=== PATIENT | male | born 1960 | race American Indian/Alaskan Native ===

== ENCOUNTER 2020-02-06 13:11 | Outpatient (CLI) | payer MEDICARE, MEDICAID | END 2020-02-06 13:12 | disposition home or self-care (01) | LOC: WOUND 13:11 | PROVIDERS: ATTEND Surgery | DX: N30.40 Irradiation cystitis without hematuria (principal); C61 Malignant neoplasm of prostate; E11.8 Type 2 diabetes mellitus with unspecified complications; H91.90 Unspecified hearing loss, unspecified ear; F32.9 Major depressive disorder, single episode, unspecified; F20.9 Schizophrenia, unspecified; Z90.49 Acquired absence of other specified parts of digestive tract | CPT/HCPCS: 99204; G0463 ==

== ENCOUNTER 2020-03-13 12:30 | Outpatient (CLI) | payer MEDICARE, MEDICAID ==
--- NOTE | 2020-03-13 13:41 | XRay Report ---
CHEST 2 VIEWS INDICATION: HBO CLEARANCE/MALIGNANT NEOPLASM OF PROSTATE. COMPARISON: None FINDINGS: Support devices: None. Heart: Within normal limits. Lungs/pleura: No acute air space or interstitial disease. No pneumothorax. Additional findings: None. IMPRESSION: Unremarkable chest films. Signer Name: Jed Baum Jr, MD Signed: 03/13/2020 1:36 PM Workstation Name: [id number]
== END 2020-03-13 12:31 | disposition home or self-care (01) ==
LOC: XRAY 12:30
PROVIDERS: ATTEND Surgery
DX: C61 Malignant neoplasm of prostate (principal)
CPT/HCPCS: 36415; 71046; 83036

== ENCOUNTER 2020-03-17 10:33 | Outpatient (CLI) | payer MEDICARE, MEDICAID | END 2020-03-17 10:34 | disposition home or self-care (01) | LOC: WOUND 10:33 | PROVIDERS: ATTEND Surgery | DX: M87.88 Other osteonecrosis, other site (principal); N30.41 Irradiation cystitis with hematuria; L59.8 Other specified disorders of the skin and subcutaneous tissue related to radiation; C61 Malignant neoplasm of prostate; E11.9 Type 2 diabetes mellitus without complications; I10 Essential (primary) hypertension; H91.90 Unspecified hearing loss, unspecified ear; F32.9 Major depressive disorder, single episode, unspecified; F20.9 Schizophrenia, unspecified; Z90.49 Acquired absence of other specified parts of digestive tract; Y84.2 Radiological procedure and radiotherapy as the cause of abnormal reaction of the patient, or of later complication, without mention of misadventure at the time of the procedure | CPT/HCPCS: 82962; G0277; 99183 ==

== ENCOUNTER 2020-03-18 10:00 | Outpatient (CLI) | payer MEDICARE, MEDICAID | END 2020-03-18 10:01 | disposition home or self-care (01) | LOC: WOUND 10:00 | PROVIDERS: ATTEND Internal Medicine | DX: M87.88 Other osteonecrosis, other site (principal); N30.41 Irradiation cystitis with hematuria; C61 Malignant neoplasm of prostate; E11.69 Type 2 diabetes mellitus with other specified complication; H91.90 Unspecified hearing loss, unspecified ear; F32.9 Major depressive disorder, single episode, unspecified; F20.9 Schizophrenia, unspecified; Z90.49 Acquired absence of other specified parts of digestive tract | CPT/HCPCS: 82962; G0277; 99183 ==

== ENCOUNTER 2020-06-09 12:17 | Outpatient (CLI) | payer MEDICARE, MEDICAID | END 2020-06-09 12:18 | disposition home or self-care (01) | LOC: WOUND 12:17 | PROVIDERS: ATTEND Surgery | DX: M87.88 Other osteonecrosis, other site (principal); N30.41 Irradiation cystitis with hematuria; Z85.46 Personal history of malignant neoplasm of prostate; E11.69 Type 2 diabetes mellitus with other specified complication; H91.90 Unspecified hearing loss, unspecified ear; F32.9 Major depressive disorder, single episode, unspecified; F20.9 Schizophrenia, unspecified; Z90.49 Acquired absence of other specified parts of digestive tract | CPT/HCPCS: 82962; G0277; 99183 ==

== ENCOUNTER 2020-06-10 10:06 | Outpatient (CLI) | payer MEDICARE, MEDICAID | END 2020-06-10 10:07 | disposition home or self-care (01) | LOC: WOUND 10:06 | PROVIDERS: ATTEND Internal Medicine | DX: M87.88 Other osteonecrosis, other site (principal); N30.41 Irradiation cystitis with hematuria; Z85.46 Personal history of malignant neoplasm of prostate; E11.69 Type 2 diabetes mellitus with other specified complication; H91.90 Unspecified hearing loss, unspecified ear; F32.9 Major depressive disorder, single episode, unspecified; F20.9 Schizophrenia, unspecified; Z90.49 Acquired absence of other specified parts of digestive tract | CPT/HCPCS: 82962; G0277; 99183 ==

== ENCOUNTER 2020-06-11 10:14 | Outpatient (CLI) | payer MEDICARE, MEDICAID | END 2020-06-11 10:15 | disposition home or self-care (01) | LOC: WOUND 10:14 | PROVIDERS: ATTEND Surgery | DX: M87.88 Other osteonecrosis, other site (principal); L59.8 Other specified disorders of the skin and subcutaneous tissue related to radiation; N30.41 Irradiation cystitis with hematuria; Z85.46 Personal history of malignant neoplasm of prostate; E11.69 Type 2 diabetes mellitus with other specified complication; F32.9 Major depressive disorder, single episode, unspecified; F20.9 Schizophrenia, unspecified; Z90.49 Acquired absence of other specified parts of digestive tract; Y84.2 Radiological procedure and radiotherapy as the cause of abnormal reaction of the patient, or of later complication, without mention of misadventure at the time of the procedure; Y78.1 Therapeutic (nonsurgical) and rehabilitative radiological devices associated with adverse incidents | CPT/HCPCS: 99183; G0277 ==

== ENCOUNTER 2020-06-12 10:02 | Outpatient (CLI) | payer MEDICARE, MEDICAID | END 2020-06-12 10:03 | disposition home or self-care (01) | LOC: WOUND 10:02 | PROVIDERS: ATTEND Surgery | DX: M87.88 Other osteonecrosis, other site (principal); N30.41 Irradiation cystitis with hematuria; Z85.46 Personal history of malignant neoplasm of prostate; E11.69 Type 2 diabetes mellitus with other specified complication; H91.90 Unspecified hearing loss, unspecified ear; F32.9 Major depressive disorder, single episode, unspecified; F20.9 Schizophrenia, unspecified; Z90.49 Acquired absence of other specified parts of digestive tract | CPT/HCPCS: 82962; G0277; 99183 ==

== ENCOUNTER 2020-06-13 09:49 | Outpatient (CLI) | payer MEDICARE, MEDICAID | END 2020-06-13 09:50 | disposition home or self-care (01) | LOC: WOUND 09:49 | PROVIDERS: ATTEND Internal Medicine | DX: M87.88 Other osteonecrosis, other site (principal); N30.41 Irradiation cystitis with hematuria; E11.69 Type 2 diabetes mellitus with other specified complication; H91.90 Unspecified hearing loss, unspecified ear; F32.9 Major depressive disorder, single episode, unspecified; F20.9 Schizophrenia, unspecified; Z85.46 Personal history of malignant neoplasm of prostate; Z90.49 Acquired absence of other specified parts of digestive tract | CPT/HCPCS: 82962; G0277; 99183 ==

== ENCOUNTER 2020-06-16 09:56 | Outpatient (CLI) | payer MEDICARE, MEDICAID | END 2020-06-16 09:57 | disposition home or self-care (01) | LOC: WOUND 09:56 | PROVIDERS: ATTEND Surgery | DX: M87.88 Other osteonecrosis, other site (principal); N30.41 Irradiation cystitis with hematuria; E11.69 Type 2 diabetes mellitus with other specified complication; H91.90 Unspecified hearing loss, unspecified ear; F32.9 Major depressive disorder, single episode, unspecified; F20.9 Schizophrenia, unspecified; Z85.46 Personal history of malignant neoplasm of prostate; Z90.49 Acquired absence of other specified parts of digestive tract | CPT/HCPCS: 82962; G0277; 99183 ==

== ENCOUNTER 2020-06-17 10:00 | Outpatient (CLI) | payer MEDICARE, MEDICAID | END 2020-06-17 10:01 | disposition home or self-care (01) | LOC: WOUND 10:00 | PROVIDERS: ATTEND Internal Medicine | DX: M87.88 Other osteonecrosis, other site (principal); N30.41 Irradiation cystitis with hematuria; E11.69 Type 2 diabetes mellitus with other specified complication; H91.90 Unspecified hearing loss, unspecified ear; F32.9 Major depressive disorder, single episode, unspecified; F20.9 Schizophrenia, unspecified; Z85.46 Personal history of malignant neoplasm of prostate; Z90.49 Acquired absence of other specified parts of digestive tract | CPT/HCPCS: 82962; G0277; 99183 ==

== ENCOUNTER 2020-06-18 09:26 | Outpatient (CLI) | payer MEDICARE, MEDICAID | END 2020-06-18 09:27 | disposition home or self-care (01) | LOC: WOUND 09:26 | PROVIDERS: ATTEND Surgery | DX: M87.88 Other osteonecrosis, other site (principal); L59.8 Other specified disorders of the skin and subcutaneous tissue related to radiation; N30.41 Irradiation cystitis with hematuria; E11.69 Type 2 diabetes mellitus with other specified complication; H91.90 Unspecified hearing loss, unspecified ear; F32.9 Major depressive disorder, single episode, unspecified; F20.9 Schizophrenia, unspecified; Z85.46 Personal history of malignant neoplasm of prostate; Z90.49 Acquired absence of other specified parts of digestive tract; Y84.2 Radiological procedure and radiotherapy as the cause of abnormal reaction of the patient, or of later complication, without mention of misadventure at the time of the procedure | CPT/HCPCS: 82962; G0277; 99183 ==

== ENCOUNTER 2020-06-23 09:47 | Outpatient (CLI) | payer MEDICARE, MEDICAID | END 2020-06-23 09:48 | disposition home or self-care (01) | LOC: WOUND 09:47 | PROVIDERS: ATTEND Surgery | DX: M87.88 Other osteonecrosis, other site (principal); L59.8 Other specified disorders of the skin and subcutaneous tissue related to radiation; N30.41 Irradiation cystitis with hematuria; E11.69 Type 2 diabetes mellitus with other specified complication; H91.90 Unspecified hearing loss, unspecified ear; F32.9 Major depressive disorder, single episode, unspecified; F20.9 Schizophrenia, unspecified; Z85.46 Personal history of malignant neoplasm of prostate; Z90.49 Acquired absence of other specified parts of digestive tract; Y84.2 Radiological procedure and radiotherapy as the cause of abnormal reaction of the patient, or of later complication, without mention of misadventure at the time of the procedure | CPT/HCPCS: 82962; G0277; 99183 ==

== ENCOUNTER 2020-06-24 08:54 | Outpatient (CLI) | payer MEDICARE, MEDICAID | END 2020-06-24 08:55 | disposition home or self-care (01) | LOC: WOUND 08:54 | PROVIDERS: ATTEND Internal Medicine | DX: M87.88 Other osteonecrosis, other site (principal); L59.8 Other specified disorders of the skin and subcutaneous tissue related to radiation; N30.41 Irradiation cystitis with hematuria; E11.69 Type 2 diabetes mellitus with other specified complication; H91.90 Unspecified hearing loss, unspecified ear; F32.9 Major depressive disorder, single episode, unspecified; F20.9 Schizophrenia, unspecified; Z85.46 Personal history of malignant neoplasm of prostate; Z90.49 Acquired absence of other specified parts of digestive tract; Y84.2 Radiological procedure and radiotherapy as the cause of abnormal reaction of the patient, or of later complication, without mention of misadventure at the time of the procedure | CPT/HCPCS: 82962; G0277; 99183 ==

== ENCOUNTER 2020-06-26 09:51 | Outpatient (CLI) | payer MEDICARE, MEDICAID | END 2020-06-26 09:52 | disposition home or self-care (01) | LOC: WOUND 09:51 | PROVIDERS: ATTEND Surgery | DX: M87.88 Other osteonecrosis, other site (principal); L59.8 Other specified disorders of the skin and subcutaneous tissue related to radiation; N30.41 Irradiation cystitis with hematuria; E11.69 Type 2 diabetes mellitus with other specified complication; H91.90 Unspecified hearing loss, unspecified ear; F32.9 Major depressive disorder, single episode, unspecified; F20.9 Schizophrenia, unspecified; Z85.46 Personal history of malignant neoplasm of prostate; Z90.49 Acquired absence of other specified parts of digestive tract; Y84.2 Radiological procedure and radiotherapy as the cause of abnormal reaction of the patient, or of later complication, without mention of misadventure at the time of the procedure | CPT/HCPCS: 82962; G0277; 99183 ==

== ENCOUNTER 2020-06-27 08:27 | Outpatient (CLI) | payer MEDICARE, MEDICAID | END 2020-06-27 08:28 | disposition home or self-care (01) | LOC: WOUND 08:27 | PROVIDERS: ATTEND Internal Medicine | DX: M87.88 Other osteonecrosis, other site (principal); L59.8 Other specified disorders of the skin and subcutaneous tissue related to radiation; N30.41 Irradiation cystitis with hematuria; E11.69 Type 2 diabetes mellitus with other specified complication; H91.90 Unspecified hearing loss, unspecified ear; F32.9 Major depressive disorder, single episode, unspecified; F20.9 Schizophrenia, unspecified; Z85.46 Personal history of malignant neoplasm of prostate; Z90.49 Acquired absence of other specified parts of digestive tract; Y84.2 Radiological procedure and radiotherapy as the cause of abnormal reaction of the patient, or of later complication, without mention of misadventure at the time of the procedure | CPT/HCPCS: 82962; G0277; 99183 ==

== ENCOUNTER 2020-07-01 09:09 | Outpatient (CLI) | payer MEDICARE, MEDICAID | END 2020-07-01 09:10 | disposition home or self-care (01) | LOC: WOUND 09:09 | PROVIDERS: ATTEND Surgery | DX: M87.88 Other osteonecrosis, other site (principal); L59.8 Other specified disorders of the skin and subcutaneous tissue related to radiation; N30.41 Irradiation cystitis with hematuria; E11.69 Type 2 diabetes mellitus with other specified complication; H91.90 Unspecified hearing loss, unspecified ear; F32.9 Major depressive disorder, single episode, unspecified; F20.9 Schizophrenia, unspecified; Z85.46 Personal history of malignant neoplasm of prostate; Z90.49 Acquired absence of other specified parts of digestive tract; Y84.2 Radiological procedure and radiotherapy as the cause of abnormal reaction of the patient, or of later complication, without mention of misadventure at the time of the procedure | CPT/HCPCS: 82962; G0277; 99183 ==

== ENCOUNTER 2020-07-02 09:54 | Outpatient (CLI) | payer MEDICARE, MEDICAID | END 2020-07-02 09:55 | disposition home or self-care (01) | LOC: WOUND 09:54 | PROVIDERS: ATTEND Surgery | DX: M87.88 Other osteonecrosis, other site (principal); L59.8 Other specified disorders of the skin and subcutaneous tissue related to radiation; N30.41 Irradiation cystitis with hematuria; E11.69 Type 2 diabetes mellitus with other specified complication; H91.90 Unspecified hearing loss, unspecified ear; F32.9 Major depressive disorder, single episode, unspecified; Z20.9 Contact with and (suspected) exposure to unspecified communicable disease; Z85.46 Personal history of malignant neoplasm of prostate; Z90.49 Acquired absence of other specified parts of digestive tract; Y84.2 Radiological procedure and radiotherapy as the cause of abnormal reaction of the patient, or of later complication, without mention of misadventure at the time of the procedure | CPT/HCPCS: 82962; G0277; 99183 ==

== ENCOUNTER 2020-07-04 09:30 | Outpatient (CLI) | payer MEDICARE | END 2020-07-04 10:30 | disposition home or self-care (01) | LOC: WOUND 09:30 | PROVIDERS: ATTEND Internal Medicine | DX: M87.88 Other osteonecrosis, other site (principal); L59.8 Other specified disorders of the skin and subcutaneous tissue related to radiation; N30.41 Irradiation cystitis with hematuria; E11.69 Type 2 diabetes mellitus with other specified complication; H91.90 Unspecified hearing loss, unspecified ear; F32.9 Major depressive disorder, single episode, unspecified; Z20.9 Contact with and (suspected) exposure to unspecified communicable disease; Z85.46 Personal history of malignant neoplasm of prostate; Z90.49 Acquired absence of other specified parts of digestive tract; Y84.2 Radiological procedure and radiotherapy as the cause of abnormal reaction of the patient, or of later complication, without mention of misadventure at the time of the procedure | CPT/HCPCS: 82962; G0277; 99183 ==

== ENCOUNTER 2020-07-07 10:02 | Outpatient (CLI) | payer MEDICARE, MEDICAID | END 2020-07-07 10:03 | disposition home or self-care (01) | LOC: WOUND 10:02 | PROVIDERS: ATTEND Surgery | DX: M87.88 Other osteonecrosis, other site (principal); L59.8 Other specified disorders of the skin and subcutaneous tissue related to radiation; N30.41 Irradiation cystitis with hematuria; E11.69 Type 2 diabetes mellitus with other specified complication; H91.90 Unspecified hearing loss, unspecified ear; I10 Essential (primary) hypertension; F20.9 Schizophrenia, unspecified; F32.9 Major depressive disorder, single episode, unspecified; Z20.9 Contact with and (suspected) exposure to unspecified communicable disease; Z90.49 Acquired absence of other specified parts of digestive tract; Z85.46 Personal history of malignant neoplasm of prostate; Y84.2 Radiological procedure and radiotherapy as the cause of abnormal reaction of the patient, or of later complication, without mention of misadventure at the time of the procedure | CPT/HCPCS: 82962; G0277; 99183 ==

== ENCOUNTER 2020-07-09 09:40 | Outpatient (CLI) | payer MEDICARE | END 2020-07-09 09:41 | disposition home or self-care (01) | LOC: WOUND 09:40 | PROVIDERS: ATTEND Surgery | DX: M87.88 Other osteonecrosis, other site (principal); L59.8 Other specified disorders of the skin and subcutaneous tissue related to radiation; N30.41 Irradiation cystitis with hematuria; E11.69 Type 2 diabetes mellitus with other specified complication; H91.90 Unspecified hearing loss, unspecified ear; F32.9 Major depressive disorder, single episode, unspecified; Z20.9 Contact with and (suspected) exposure to unspecified communicable disease; Z85.49 Personal history of malignant neoplasm of other male genital organs; Z90.49 Acquired absence of other specified parts of digestive tract; Y84.2 Radiological procedure and radiotherapy as the cause of abnormal reaction of the patient, or of later complication, without mention of misadventure at the time of the procedure | CPT/HCPCS: 82962; G0277; 99183 ==

== ENCOUNTER 2020-07-10 10:02 | Outpatient (CLI) | payer MEDICARE, MEDICAID | END 2020-07-10 10:03 | disposition home or self-care (01) | LOC: WOUND 10:02 | PROVIDERS: ATTEND Surgery | DX: M87.88 Other osteonecrosis, other site (principal); L59.8 Other specified disorders of the skin and subcutaneous tissue related to radiation; N30.41 Irradiation cystitis with hematuria; E11.69 Type 2 diabetes mellitus with other specified complication; H91.90 Unspecified hearing loss, unspecified ear; F32.9 Major depressive disorder, single episode, unspecified; Z20.9 Contact with and (suspected) exposure to unspecified communicable disease; Z85.49 Personal history of malignant neoplasm of other male genital organs; Z90.49 Acquired absence of other specified parts of digestive tract; Y84.2 Radiological procedure and radiotherapy as the cause of abnormal reaction of the patient, or of later complication, without mention of misadventure at the time of the procedure | CPT/HCPCS: 82962; G0277; 99183 ==

== ENCOUNTER 2020-07-11 09:55 | Outpatient (CLI) | payer MEDICARE, MEDICAID | END 2020-07-11 09:56 | disposition home or self-care (01) | LOC: WOUND 09:55 | PROVIDERS: ATTEND Internal Medicine | DX: M87.88 Other osteonecrosis, other site (principal); L59.8 Other specified disorders of the skin and subcutaneous tissue related to radiation; N30.41 Irradiation cystitis with hematuria; E11.69 Type 2 diabetes mellitus with other specified complication; H91.90 Unspecified hearing loss, unspecified ear; F32.9 Major depressive disorder, single episode, unspecified; Z20.9 Contact with and (suspected) exposure to unspecified communicable disease; Z85.49 Personal history of malignant neoplasm of other male genital organs; Z90.49 Acquired absence of other specified parts of digestive tract; Y84.2 Radiological procedure and radiotherapy as the cause of abnormal reaction of the patient, or of later complication, without mention of misadventure at the time of the procedure | CPT/HCPCS: 82962; G0277; 99183 ==

== ENCOUNTER 2020-07-14 09:44 | Outpatient (CLI) | payer MEDICARE, MEDICAID | END 2020-07-14 09:45 | disposition home or self-care (01) | LOC: WOUND 09:44 | PROVIDERS: ATTEND Surgery | DX: M87.88 Other osteonecrosis, other site (principal); L59.8 Other specified disorders of the skin and subcutaneous tissue related to radiation; N30.41 Irradiation cystitis with hematuria; E11.69 Type 2 diabetes mellitus with other specified complication; I10 Essential (primary) hypertension; H91.90 Unspecified hearing loss, unspecified ear; F32.9 Major depressive disorder, single episode, unspecified; Z20.9 Contact with and (suspected) exposure to unspecified communicable disease; Z85.49 Personal history of malignant neoplasm of other male genital organs; Z90.49 Acquired absence of other specified parts of digestive tract; Y84.2 Radiological procedure and radiotherapy as the cause of abnormal reaction of the patient, or of later complication, without mention of misadventure at the time of the procedure | CPT/HCPCS: 82962; G0277; 99183 ==

== ENCOUNTER 2020-07-15 09:00 | Outpatient (CLI) | payer MEDICARE | END 2020-07-15 10:00 | disposition home or self-care (01) | LOC: WOUND 09:00 | PROVIDERS: ATTEND Internal Medicine | DX: M87.88 Other osteonecrosis, other site (principal); L59.8 Other specified disorders of the skin and subcutaneous tissue related to radiation; N30.41 Irradiation cystitis with hematuria; E11.9 Type 2 diabetes mellitus without complications; H91.90 Unspecified hearing loss, unspecified ear; I10 Essential (primary) hypertension; F20.9 Schizophrenia, unspecified; F32.9 Major depressive disorder, single episode, unspecified; Z20.9 Contact with and (suspected) exposure to unspecified communicable disease; Z85.46 Personal history of malignant neoplasm of prostate; Z90.49 Acquired absence of other specified parts of digestive tract; Y84.2 Radiological procedure and radiotherapy as the cause of abnormal reaction of the patient, or of later complication, without mention of misadventure at the time of the procedure | CPT/HCPCS: 82962; G0277; 99183 ==

== ENCOUNTER 2020-07-16 10:02 | Outpatient (CLI) | payer MEDICARE, MEDICAID | END 2020-07-16 10:03 | disposition home or self-care (01) | LOC: WOUND 10:02 | PROVIDERS: ATTEND Surgery | DX: M87.88 Other osteonecrosis, other site (principal); L59.8 Other specified disorders of the skin and subcutaneous tissue related to radiation; N30.41 Irradiation cystitis with hematuria; E11.69 Type 2 diabetes mellitus with other specified complication; H91.90 Unspecified hearing loss, unspecified ear; F32.9 Major depressive disorder, single episode, unspecified; Z20.9 Contact with and (suspected) exposure to unspecified communicable disease; Z85.49 Personal history of malignant neoplasm of other male genital organs; Z90.49 Acquired absence of other specified parts of digestive tract; Y84.2 Radiological procedure and radiotherapy as the cause of abnormal reaction of the patient, or of later complication, without mention of misadventure at the time of the procedure | CPT/HCPCS: 82962; G0277; 99183 ==

== ENCOUNTER 2020-07-21 10:09 | Outpatient (CLI) | payer MEDICARE | END 2020-07-21 10:10 | disposition home or self-care (01) | LOC: WOUND 10:09 | PROVIDERS: ATTEND Surgery | DX: M87.88 Other osteonecrosis, other site (principal); L59.8 Other specified disorders of the skin and subcutaneous tissue related to radiation; N30.41 Irradiation cystitis with hematuria; H91.90 Unspecified hearing loss, unspecified ear; F32.9 Major depressive disorder, single episode, unspecified; Z20.9 Contact with and (suspected) exposure to unspecified communicable disease; Z85.49 Personal history of malignant neoplasm of other male genital organs; Z90.49 Acquired absence of other specified parts of digestive tract; Y84.2 Radiological procedure and radiotherapy as the cause of abnormal reaction of the patient, or of later complication, without mention of misadventure at the time of the procedure | CPT/HCPCS: 82962; G0277; 99183 ==

== ENCOUNTER 2020-07-22 09:18 | Outpatient (CLI) | payer MEDICARE | END 2020-07-22 09:19 | disposition home or self-care (01) | LOC: WOUND 09:18 | PROVIDERS: ATTEND Internal Medicine | DX: M87.88 Other osteonecrosis, other site (principal); L59.8 Other specified disorders of the skin and subcutaneous tissue related to radiation; N30.41 Irradiation cystitis with hematuria; H91.90 Unspecified hearing loss, unspecified ear; F32.9 Major depressive disorder, single episode, unspecified; Z20.9 Contact with and (suspected) exposure to unspecified communicable disease; Z85.49 Personal history of malignant neoplasm of other male genital organs; Z90.49 Acquired absence of other specified parts of digestive tract; Y84.2 Radiological procedure and radiotherapy as the cause of abnormal reaction of the patient, or of later complication, without mention of misadventure at the time of the procedure | CPT/HCPCS: 82962; G0277; 99183 ==

== ENCOUNTER 2020-07-23 09:41 | Outpatient (CLI) | payer MEDICARE | END 2020-07-23 09:42 | disposition home or self-care (01) | LOC: WOUND 09:41 | PROVIDERS: ATTEND Surgery | DX: L59.8 Other specified disorders of the skin and subcutaneous tissue related to radiation (principal); M87.88 Other osteonecrosis, other site; N30.41 Irradiation cystitis with hematuria; I10 Essential (primary) hypertension; E11.9 Type 2 diabetes mellitus without complications; F20.9 Schizophrenia, unspecified; Z85.49 Personal history of malignant neoplasm of other male genital organs; Z90.49 Acquired absence of other specified parts of digestive tract; Y84.2 Radiological procedure and radiotherapy as the cause of abnormal reaction of the patient, or of later complication, without mention of misadventure at the time of the procedure | CPT/HCPCS: 82962; G0277; 99183 ==

== ENCOUNTER 2020-07-28 11:46 | Outpatient (CLI) | payer MEDICARE | END 2020-07-28 11:47 | disposition home or self-care (01) | LOC: WOUND 11:46 | PROVIDERS: ATTEND Surgery | DX: M87.88 Other osteonecrosis, other site (principal); L59.8 Other specified disorders of the skin and subcutaneous tissue related to radiation; N30.41 Irradiation cystitis with hematuria; E11.9 Type 2 diabetes mellitus without complications; H91.90 Unspecified hearing loss, unspecified ear; I10 Essential (primary) hypertension; F20.9 Schizophrenia, unspecified; F32.9 Major depressive disorder, single episode, unspecified; Z20.9 Contact with and (suspected) exposure to unspecified communicable disease; Z85.46 Personal history of malignant neoplasm of prostate; Z90.49 Acquired absence of other specified parts of digestive tract; Y84.2 Radiological procedure and radiotherapy as the cause of abnormal reaction of the patient, or of later complication, without mention of misadventure at the time of the procedure | CPT/HCPCS: 82962; G0277; 99183 ==

== ENCOUNTER 2020-07-29 09:42 | Outpatient (CLI) | payer MEDICARE | END 2020-07-29 09:43 | disposition home or self-care (01) | LOC: WOUND 09:42 | PROVIDERS: ATTEND Surgery | DX: M87.88 Other osteonecrosis, other site (principal); L59.8 Other specified disorders of the skin and subcutaneous tissue related to radiation; N30.41 Irradiation cystitis with hematuria; H91.90 Unspecified hearing loss, unspecified ear; F32.9 Major depressive disorder, single episode, unspecified; E11.9 Type 2 diabetes mellitus without complications; I10 Essential (primary) hypertension; F20.9 Schizophrenia, unspecified; Z85.46 Personal history of malignant neoplasm of prostate; Z20.9 Contact with and (suspected) exposure to unspecified communicable disease; Z90.49 Acquired absence of other specified parts of digestive tract; Y84.2 Radiological procedure and radiotherapy as the cause of abnormal reaction of the patient, or of later complication, without mention of misadventure at the time of the procedure | CPT/HCPCS: 82962; G0277; 99183 ==

== ENCOUNTER 2020-07-31 10:00 | Outpatient (CLI) | payer MEDICARE | END 2020-07-31 10:01 | disposition home or self-care (01) | LOC: WOUND 10:00 | PROVIDERS: ATTEND Surgery | DX: M87.88 Other osteonecrosis, other site (principal); L59.8 Other specified disorders of the skin and subcutaneous tissue related to radiation; N30.41 Irradiation cystitis with hematuria; H91.90 Unspecified hearing loss, unspecified ear; F32.9 Major depressive disorder, single episode, unspecified; E11.9 Type 2 diabetes mellitus without complications; Z85.49 Personal history of malignant neoplasm of other male genital organs; Z20.9 Contact with and (suspected) exposure to unspecified communicable disease; Z90.49 Acquired absence of other specified parts of digestive tract; Y84.2 Radiological procedure and radiotherapy as the cause of abnormal reaction of the patient, or of later complication, without mention of misadventure at the time of the procedure | CPT/HCPCS: 82962; G0277; 99183 ==

== ENCOUNTER 2020-08-01 09:27 | Outpatient (CLI) | payer MEDICARE | END 2020-08-01 09:28 | disposition home or self-care (01) | LOC: WOUND 09:27 | PROVIDERS: ATTEND Internal Medicine | DX: M87.88 Other osteonecrosis, other site (principal); L59.8 Other specified disorders of the skin and subcutaneous tissue related to radiation; N30.41 Irradiation cystitis with hematuria; H91.90 Unspecified hearing loss, unspecified ear; F32.9 Major depressive disorder, single episode, unspecified; E11.9 Type 2 diabetes mellitus without complications; Z85.49 Personal history of malignant neoplasm of other male genital organs; Z20.9 Contact with and (suspected) exposure to unspecified communicable disease; Z90.49 Acquired absence of other specified parts of digestive tract; Y84.2 Radiological procedure and radiotherapy as the cause of abnormal reaction of the patient, or of later complication, without mention of misadventure at the time of the procedure | CPT/HCPCS: 82962; G0277; 99183 ==

== ENCOUNTER 2020-08-04 09:48 | Outpatient (CLI) | payer MEDICARE | END 2020-08-04 09:49 | disposition home or self-care (01) | LOC: WOUND 09:48 | PROVIDERS: ATTEND Surgery | DX: M87.88 Other osteonecrosis, other site (principal); L59.8 Other specified disorders of the skin and subcutaneous tissue related to radiation; N30.41 Irradiation cystitis with hematuria; H91.90 Unspecified hearing loss, unspecified ear; F32.9 Major depressive disorder, single episode, unspecified; E11.9 Type 2 diabetes mellitus without complications; Z85.49 Personal history of malignant neoplasm of other male genital organs; Z20.9 Contact with and (suspected) exposure to unspecified communicable disease; Z90.49 Acquired absence of other specified parts of digestive tract; Y84.2 Radiological procedure and radiotherapy as the cause of abnormal reaction of the patient, or of later complication, without mention of misadventure at the time of the procedure | CPT/HCPCS: 82962; G0277; 99183 ==

== ENCOUNTER 2020-08-05 10:24 | Outpatient (CLI) | payer MEDICARE | END 2020-08-05 10:25 | disposition home or self-care (01) | LOC: WOUND 10:24 | PROVIDERS: ATTEND Surgery | DX: M87.88 Other osteonecrosis, other site (principal); L59.8 Other specified disorders of the skin and subcutaneous tissue related to radiation; N30.41 Irradiation cystitis with hematuria; H91.90 Unspecified hearing loss, unspecified ear; F32.9 Major depressive disorder, single episode, unspecified; E11.9 Type 2 diabetes mellitus without complications; I10 Essential (primary) hypertension; F20.9 Schizophrenia, unspecified; Z85.46 Personal history of malignant neoplasm of prostate; Z90.49 Acquired absence of other specified parts of digestive tract; Y84.2 Radiological procedure and radiotherapy as the cause of abnormal reaction of the patient, or of later complication, without mention of misadventure at the time of the procedure | CPT/HCPCS: 82962; G0277; 99183 ==

== ENCOUNTER 2020-08-07 10:06 | Outpatient (CLI) | payer MEDICARE | END 2020-08-07 10:07 | disposition home or self-care (01) | LOC: WOUND 10:06 | PROVIDERS: ATTEND Internal Medicine | DX: M87.88 Other osteonecrosis, other site (principal); L59.8 Other specified disorders of the skin and subcutaneous tissue related to radiation; N30.41 Irradiation cystitis with hematuria; H91.90 Unspecified hearing loss, unspecified ear; F32.9 Major depressive disorder, single episode, unspecified; E11.9 Type 2 diabetes mellitus without complications; I10 Essential (primary) hypertension; F20.9 Schizophrenia, unspecified; Z85.46 Personal history of malignant neoplasm of prostate; Z90.49 Acquired absence of other specified parts of digestive tract; Y84.2 Radiological procedure and radiotherapy as the cause of abnormal reaction of the patient, or of later complication, without mention of misadventure at the time of the procedure | CPT/HCPCS: 82962; G0277; 99183 ==

== ENCOUNTER 2020-08-08 10:04 | Outpatient (CLI) | payer MEDICARE | END 2020-08-08 10:05 | disposition home or self-care (01) | LOC: WOUND 10:04 | PROVIDERS: ATTEND Internal Medicine | DX: M87.88 Other osteonecrosis, other site (principal); L59.8 Other specified disorders of the skin and subcutaneous tissue related to radiation; N30.41 Irradiation cystitis with hematuria; E11.69 Type 2 diabetes mellitus with other specified complication; H91.90 Unspecified hearing loss, unspecified ear; F32.9 Major depressive disorder, single episode, unspecified; Z20.9 Contact with and (suspected) exposure to unspecified communicable disease; Z85.46 Personal history of malignant neoplasm of prostate; Z90.49 Acquired absence of other specified parts of digestive tract; Y84.2 Radiological procedure and radiotherapy as the cause of abnormal reaction of the patient, or of later complication, without mention of misadventure at the time of the procedure | CPT/HCPCS: 82962; G0277; 99183 ==

== ENCOUNTER 2020-08-12 08:58 | Outpatient (CLI) | payer MEDICARE | END 2020-08-12 08:59 | disposition home or self-care (01) | LOC: WOUND 08:58 | PROVIDERS: ATTEND Internal Medicine | DX: M87.88 Other osteonecrosis, other site (principal); L59.8 Other specified disorders of the skin and subcutaneous tissue related to radiation; N30.41 Irradiation cystitis with hematuria; E11.9 Type 2 diabetes mellitus without complications; H91.90 Unspecified hearing loss, unspecified ear; F32.9 Major depressive disorder, single episode, unspecified; I10 Essential (primary) hypertension; F20.9 Schizophrenia, unspecified; Z85.46 Personal history of malignant neoplasm of prostate; Z90.49 Acquired absence of other specified parts of digestive tract; Y84.2 Radiological procedure and radiotherapy as the cause of abnormal reaction of the patient, or of later complication, without mention of misadventure at the time of the procedure | CPT/HCPCS: 82962; G0277; 99183 ==

== ENCOUNTER 2020-08-13 09:42 | Outpatient (CLI) | payer MEDICARE | END 2020-08-13 09:43 | disposition home or self-care (01) | LOC: WOUND 09:42 | PROVIDERS: ATTEND Surgery | DX: M87.88 Other osteonecrosis, other site (principal); L59.8 Other specified disorders of the skin and subcutaneous tissue related to radiation; N30.41 Irradiation cystitis with hematuria; E11.9 Type 2 diabetes mellitus without complications; H91.90 Unspecified hearing loss, unspecified ear; F32.9 Major depressive disorder, single episode, unspecified; I10 Essential (primary) hypertension; F20.9 Schizophrenia, unspecified; Z85.46 Personal history of malignant neoplasm of prostate; Z90.49 Acquired absence of other specified parts of digestive tract; Y84.2 Radiological procedure and radiotherapy as the cause of abnormal reaction of the patient, or of later complication, without mention of misadventure at the time of the procedure | CPT/HCPCS: 82962; G0277; 99183 ==

== ENCOUNTER 2020-08-14 10:00 | Outpatient (CLI) | payer MEDICARE | END 2020-08-14 10:01 | disposition home or self-care (01) | LOC: WOUND 10:00 | PROVIDERS: ATTEND Internal Medicine | DX: M87.88 Other osteonecrosis, other site (principal); L59.8 Other specified disorders of the skin and subcutaneous tissue related to radiation; N30.41 Irradiation cystitis with hematuria; E11.9 Type 2 diabetes mellitus without complications; I10 Essential (primary) hypertension; H91.90 Unspecified hearing loss, unspecified ear; F32.9 Major depressive disorder, single episode, unspecified; F20.9 Schizophrenia, unspecified; Z85.46 Personal history of malignant neoplasm of prostate; Z90.49 Acquired absence of other specified parts of digestive tract; Y84.2 Radiological procedure and radiotherapy as the cause of abnormal reaction of the patient, or of later complication, without mention of misadventure at the time of the procedure | CPT/HCPCS: 82962; G0277; 99183 ==

== ENCOUNTER 2020-08-15 10:10 | Outpatient (CLI) | payer MEDICARE | END 2020-08-15 10:11 | disposition home or self-care (01) | LOC: WOUND 10:10 | PROVIDERS: ATTEND Internal Medicine | DX: M87.88 Other osteonecrosis, other site (principal); L59.8 Other specified disorders of the skin and subcutaneous tissue related to radiation; N30.41 Irradiation cystitis with hematuria; E11.9 Type 2 diabetes mellitus without complications; H91.90 Unspecified hearing loss, unspecified ear; F32.9 Major depressive disorder, single episode, unspecified; I10 Essential (primary) hypertension; F20.9 Schizophrenia, unspecified; Z85.46 Personal history of malignant neoplasm of prostate; Z90.49 Acquired absence of other specified parts of digestive tract; Y84.2 Radiological procedure and radiotherapy as the cause of abnormal reaction of the patient, or of later complication, without mention of misadventure at the time of the procedure | CPT/HCPCS: 82962; G0277; 99183 ==

== ENCOUNTER 2020-08-18 10:07 | Outpatient (CLI) | payer MEDICARE | END 2020-08-18 10:08 | disposition home or self-care (01) | LOC: WOUND 10:07 | PROVIDERS: ATTEND Surgery | DX: M87.88 Other osteonecrosis, other site (principal); L59.8 Other specified disorders of the skin and subcutaneous tissue related to radiation; N30.41 Irradiation cystitis with hematuria; E11.9 Type 2 diabetes mellitus without complications; I10 Essential (primary) hypertension; H91.90 Unspecified hearing loss, unspecified ear; F32.9 Major depressive disorder, single episode, unspecified; F20.9 Schizophrenia, unspecified; Z85.46 Personal history of malignant neoplasm of prostate; Z90.49 Acquired absence of other specified parts of digestive tract; Y84.2 Radiological procedure and radiotherapy as the cause of abnormal reaction of the patient, or of later complication, without mention of misadventure at the time of the procedure | CPT/HCPCS: 82962; G0277; 99183 ==